=== PATIENT | female | born 1990 | race Hispanic/Latino ===

== ENCOUNTER 2021-02-27 14:00 | Emergency (ER) | payer MEDICAID, OTHER ==
[~2021-02-27] VITALS: Ht 149.9 cm; Wt 54.4 kg
[2021-02-27 14:01] VITALS: BP 114/67
[2021-02-27] MEDS ORDERED: ACETAMINOPHEN 500 MG TABLET PO ONE (15:15)
[2021-02-27] MEDS ORDERED: NACL 0.9% 1000ML 1,000 ML IV ONE ×2 (15:30→16:01)
[2021-02-27] MEDS ORDERED: METOCLOPRAMIDE 10 MG/2 ML VIAL IVP ONE (15:30)
[2021-02-27] MEDS ORDERED: DiphenhydrAMINE HCL 50 MG/ML VIAL IV ONE (15:30)
[2021-02-27] MEDS ORDERED: METO10TA41 PO (17:52)
[2021-02-27] MEDS ORDERED: ACET-66 PO (17:52)
== END 2021-02-27 18:46 | disposition home or self-care (01) ==
LOC: EDH 14:00
DX: U07.1 COVID-19 (principal); Z79.899 Other long term (current) drug therapy
CPT/HCPCS: 71045; 87635; 87804 ×2; 87880; 96361; 96374; 96375; 99284; C9803; J1200; J2765; J7030

== ENCOUNTER 2023-06-07 19:08 | Emergency (ER) | payer OTHER ==
[~2023-06-07] VITALS: Ht 142.2 cm; Wt 54.9 kg
[~2023-06-07 19:08] MED LIST: ACET-66 PO; METO10TA41 PO
[2023-06-07 19:30] VITALS: BP 145/69; PULSE 112; RESP 20
== END 2023-06-07 21:10 | disposition left against medical advice (07) ==
LOC: EDH 19:08
DX: R50.9 Fever, unspecified (principal); Z53.21 Procedure and treatment not carried out due to patient leaving prior to being seen by health care provider
CPT/HCPCS: 81025; 99281